=== PATIENT | female | born 1965 | race Caucasian/White ===

== ENCOUNTER 2021-12-27 18:26 | Outpatient (CLI) | payer OTHER ==
--- NOTE | 2021-12-28 13:06 | XRAY Report ---
PROCEDURE: Foot 3 View LT INDICATIONS: LEFT FOOT PAIN TECHNIQUE: 3 views of the foot were acquired. COMPARISON: None FINDINGS: Bones: No fractures or dislocations. No suspicious bony lesions. Scattered areas of degenerative m inimal IP narrowing, most notable at the first MTP joint.Small calcaneal spur. Soft tissues: No tibiotalar joint effusion. Achilles tendon appears normal. IMPRESSION: There are areas of IP arthritic change. Reviewed by: Gretchen Euceda MD on 12/28/2021 1:04 PM [facility] Approved by: Gretchen Euceda MD on 12/28/2021 1:04 PM [facility] Station ID: [id number]
--- NOTE | 2021-12-28 13:07 | XRAY Report ---
PROCEDURE: Tib/Fib LT INDICATIONS: LOWER LEG PAIN TECHNIQUE: 2 views of the tibia and fibula were acquired. COMPARISON: X-ray foot 12/27/2021 FINDINGS: Bones: No fractures or dislocations. No suspicious bony lesions. Soft tissues: No suspicious soft tissue calcifications or masses. IMPRESSION: No visualized acute fracture or dislocation. However, occult injury cannot be excluded. Recommend marietta rt interval imaging follow-up in 7-10 days as clinically indicated for additional evaluation. Reviewed by: Gretchen Euceda MD on 12/28/2021 1:05 PM PST Approved by: Gretchen Euceda MD on 12/28/2021 1:05 PM PST Station ID: [id number]
== END 2021-12-27 18:27 | disposition home or self-care (01) ==
LOC: DI.S 18:26
PROVIDERS: ATTEND Physician Assistant
DX: M19.072 Primary osteoarthritis, left ankle and foot (principal)

== ENCOUNTER 2022-06-12 12:47 | Emergency (ER) | payer OTHER ==
[2022-06-12] MEDS ORDERED: ASPIRIN CHEW 81 MG TABLET PO STA (13:03)
[2022-06-12] MEDS ORDERED: NITROGLYCERIN SL 0.4 MG TABLET SL STA (13:03)
--- NOTE | 2022-06-12 13:04 | ED Physician Documentation ---
PD HPI CHEST PAIN - Stated complaint Stated Complaint: CHEST/BACK PX - Chief complaint Chief Complaint: Cardiac - History obtained from History obtained from: Patient - Additional information Additional information: She has had on and off upper chest pain since February. She been having daily episodes and generally triggered by exertion and lasting on average about 15 minutes. She has seen her primary care physician and so far has had multiple EKGs and pulmonary function testing done without specific diagnosis, she has a stress test scheduled for 2 days from today with [facility]. Today she has had pain since 830 this morning. It is not relenting as it usually does and is rest pain which is different than the previous episode she has been having but the quality and location are the same. She is a little short of breath with it. Denies diaphoresis or nausea. 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 : None HEENT: None Psych: Depression, Anxiety Musculoskeletal: Osteoarthritis, Other Derm: Eczema - Past Surgical History Past Surgical History: Yes General: Cholecystectomy, Gastric surgery /SPECIAL EDUCATION ADMINISTRATOR: section, Hysterectomy - Present Medications Home Medications: Ambulatory Orders Medication Instructions Recorded Confirmed Adalimumab [Humira Pen] 40 mg SQ ONCE 02/05/21 06/12/22 Ibuprofen [Motrin] 600 mg PO Q6H PRN 02/05/21 06/12/22 Omeprazole Magnesium 20 mg PO DAILY 02/05/21 06/12/22 PARoxetine HCL [Paxil] 60 mg PO DAILY 02/05/21 06/12/22 busPIRone [Buspar] 5 mg PO DAILY 02/05/21 06/12/22 Nitroglycerin [Nitrostat] 0.4 mg SL Q5MIN PRN #1 tab 06/12/22 - Allergies Allergies/Adverse Reactions: Allergies Allergy/AdvReac Type Severity Reaction Status Date / Time amoxicillin Allergy Edema Verified 06/12/22 12:50 erythromycin base Allergy Edema Verified 06/12/22 12:50 [From Erythrocin] - Social History Does the pt smoke?: No Smoking Status: Former smoker Does the pt drink ETOH?: Yes Does the pt have substance abuse?: Yes - Immunizations Immunizations are current?: Yes PD ED PE NORMAL - Vitals Vital signs reviewed: Yes - General General: Alert and oriented X 3, No acute distress - HEENT HEENT: PERRL, EOMI - Neck Neck: Supple, no meningeal sign, No bony TTP - Cardiac Cardiac: RRR, No murmur - Respiratory Respiratory: No respiratory distress, Clear bilaterally - Abdomen Abdomen: Normal bowel sounds, Soft, Non tender - Back Back: No CVA TTP, No spinal TTP - Derm Derm: Normal color, Warm and dry - Extremities Extremities: No edema, No calf tenderness / cord - Neuro Neuro: Alert and oriented X 3, Normal speech Eye Opening: Spontaneous Motor: Obeys Commands Results - Vitals Vitals: Vital Signs - 24 hr 06/12/22 06/12/22 06/12/22 12:50 13:23 13:28 Temperature 36.5 C Heart Rate 80 78 76 Respiratory 16 20 16 Rate Blood Pressure 145/84 H 131/80 H 139/76 H O2 Saturation 99 99 98 06/12/22 13:42 Temperature Heart Rate 71 Respiratory 12 Rate Blood Pressure 109/85 H O2 Saturation 100 Oxygen O2 Source Room air - EKG (time done) 1258 EKG releavant findings:: EKG personally interpreted by author of this note. Relevant findings are: Rate: Rate (enter#) (80) Rhythm: NSR [place]: Normal Intervals: Normal [place] QRS: Normal Ischemia: Normal ST segments, Other (Inferior Q waves, no change from February 05, 2021.). No: ST elevation c/w ischemia, ST depression Compare to prior EKG: Unchanged from prior EKG Computer interpretation: Agree with computer - Labs Labs: Laboratory Tests 06/12/22 06/12/22 06/12/22 13:18 13:18 13:18 WBC 5.6 RBC 4.69 Hgb 13.6 Hct 40.5 MCV 86.4 MCH 29.0 MCHC 33.6 RDW 14.1 Plt Count 497 H MPV 9.5 Neut # (Auto) 2.0 Lymph # (Auto) 3.0 [place] # (Auto) 0.4 Eos # (Auto) 0.2 Baso # (Auto) 0.1 Absolute Nucleated RBC 0.00 Nucleated RBC % 0.0 Sodium 140 Potassium 4.3 Chloride 103 Carbon Dioxide 26 Anion Gap 11.0 BUN 11 Creatinine 0.6 Estimated GFR (MDRD) 103 Glucose 95 Calcium 9.2 Total Bilirubin 0.4 AST 27 ALT 26 Alkaline Phosphatase 62 Troponin I High Sens 2.4 Total Protein 7.8 Albumin 3.9 Globulin 3.9 Albumin/Globulin Ratio 1.0 Lipase 27 - Rads (name of study) 1v chest Relevant Findings:: Final report received (NAD), EMP independent interpretation of test PD Medical Decision Making - ED course ED course: This is a 57-year-old woman who has been having chest pain concerning for angina for the last couple of months and today has more ongoing rest pain. Her EKG is not changed. She was administered aspirin and nitroglycerin with resolution of her pain. Subsequently her troponin, CBC, and CMP were normal. Chest x-ray unremarkable. Now that she is pain-free I think she can be safely discharged with a prescription for nitroglycerin and daily aspirin since she has appropriate follow-up with a stress test scheduled for 48 hours from now. Departure - Departure Disposition: 01 Home, Self Care Clinical Impression: Chest pain Qualifiers: Chest pain type: unspecified Qualified Code(s): R07.9 - Chest pain, unspecified Condition: Good Record reviewed to determine appropriate education?: Yes Instructions: Angina Dc Prescriptions: Nitroglycerin [Nitrostat] 0.4 mg SL Q5MIN PRN #1 tab PRN Reason: Chest Pain Comments: Keep the appointment for the stress test you have scheduled in 48 hours. If you develop pain, take a nitroglycerin and then rest. If pain is not gone within a few minutes, take another nitroglycerin and call 911. You should take a baby aspirin a day.
--- NOTE | 2022-06-12 13:17 | XRAY Report ---
PROCEDURE: Chest 1 View X-Ray INDICATIONS: Chest pain TECHNIQUE: One view of the chest was acquired. COMPARISON: 02/05/2021. FINDINGS: Surgical changes and devices: None. Lungs and pleura: No pleural effusions or pneumothorax. Lungs are clear. Mediastinum: Mediastinal contours appear normal. Heart size is normal. Bones and chest wall: No suspicious bony lesions. Overlying soft tissues appear unremarkable. IMPRESSION: No acute cardiopulmonary process. Reviewed by: Michael Torrez MD on 06/12/2022 1:16 PM PDT Approved by: Michael Torrez MD on 06/12/2022 1:16 PM PDT Station ID: [id number]
[2022-06-12 13:25] LABS: BASOPHILS # (AUTO) 0.1 10^3/uL (0.0-0.1); BASOPHILS % (AUTO) 0.9 %; EOSINOPHILS # (AUTO) 0.2 10^3/uL (0.0-0.7); EOSINOPHILS % (AUTO) 2.9 %; HCT - HEMATOCRIT 40.5 % (37.0-47.0); HGB - HEMOGLOBIN 13.6 g/dL (12.0-16.0); LYMPHOCYTES % (AUTO) 52.9 %; MEAN CORPUSCULAR HGB CONC 33.6 g/dL (32.0-36.0); MEAN CORPUSCULAR VOLUME 86.4 fL (81.0-99.0); MEAN PLATELET VOLUME 9.5 fL (7.9-10.8); MONOCYTES # (AUTO) 0.4 10^3/uL (0.0-1.0); MONOCYTES % (AUTO) 7.5 %; NEUTROPHILS % (AUTO) 35.6 %; PLT - PLATELET COUNT 497 10^3/uL (130-450); RED BLOOD COUNT 4.69 10^6/uL (4.20-5.40); RED CELL DISTRIBUTION WIDTH 14.1 % (12.0-15.0); WHITE BLOOD COUNT 5.6 x10^3/uL (4.8-10.8)
[2022-06-12 13:45] LABS: ALBUMIN 3.9 g/dL (3.2-5.5); BILIRUBIN,TOTAL 0.4 mg/dL (0.2-1.0); CALCIUM 9.2 mg/dL (8.5-10.3); CREATININE 0.6 mg/dL (0.4-1.0); POTASSIUM 4.3 mmol/L (3.5-5.0); TOTAL PROTEIN 7.8 g/dL (6.7-8.2)
[2022-06-12 14:20] VITALS: BP 110/82
== END 2022-06-12 14:20 | disposition home or self-care (01) ==
LOC: ED 12:47
DX: R07.9 Chest pain, unspecified (principal); E03.9 Hypothyroidism, unspecified; Z87.891 Personal history of nicotine dependence; Z79.899 Other long term (current) drug therapy
CPT/HCPCS: 36415; 71045; 80053; 83690; 84484; 85025; 93005; 99284; A9270

== ENCOUNTER 2022-07-23 13:32 | Emergency (ER) | payer OTHER ==
--- NOTE | 2022-07-23 13:50 | ED Physician Documentation ---
PD HPI CHEST PAIN - Stated complaint Stated Complaint: CHEST PX - Chief complaint Chief Complaint: Cardiac - History obtained from History obtained from: Patient - History of Present Illness Timing - onset: How many hours ago (few), Today Timing - onset during: Rest, Light activity Timing - duration: Hours (few) Timing - details: Gradual onset, Still present, Waxing and waning Quality: Pressure, Aching, Pain. No: Sharp Location: Substernal Radiation: Neck (right side), Back Improved by: No: Rest, Nitro (she has this periodically since February, and has had improvement with NTG x 1 or 2 in the past. Did not get improved with NTG x 3 today. Has been having cardi[facility] eval [facility] that was normal. Having Holter now. Was given Rx for NTG PRN.) Worsened by: No: Inspiration, Eating, Movement Recently seen: Clinic, Emergency Dept (few weeks ago with similar, with normal ECG and Troponin. 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 : None HEENT: None Psych: Depression, Anxiety Musculoskeletal: Osteoarthritis, Other Derm: Eczema - Past Surgical History Past Surgical History: Yes General: Cholecystectomy, Gastric surgery /CHOCOLATE FINISHER: section, Hysterectomy - Present Medications Home Medications: Ambulatory Orders Medication Instructions Recorded Confirmed Adalimumab [Humira Pen] 40 mg SQ ONCE 02/05/21 06/12/22 Ibuprofen [Motrin] 600 mg PO Q6H PRN 02/05/21 06/12/22 Omeprazole Magnesium 20 mg PO DAILY 02/05/21 06/12/22 PARoxetine HCL [Paxil] 60 mg PO DAILY 02/05/21 06/12/22 busPIRone [Buspar] 5 mg PO DAILY 01/01/22 05/08/23 Nitroglycerin [Nitrostat] 0.4 mg SL Q5MIN PRN #1 tab 06/12/22 Isosorbide Mononitrate ER [Imdur] 30 mg PO DAILY #10 tablet 07/23/22 - Allergies Allergies/Adverse Reactions: Allergies Allergy/AdvReac Type Severity Reaction Status Date / Time amoxicillin Allergy Edema Verified 07/23/22 13:46 erythromycin base Allergy Edema Verified 07/23/22 13:46 [From Erythrocin] - Social History Does the pt smoke?: No Smoking Status: Former smoker Does the pt drink ETOH?: Yes Does the pt have substance abuse?: Yes - Immunizations Immunizations are current?: Yes PD ED PE NORMAL - Vitals Vital signs reviewed: Yes - General General: Alert and oriented X 3, No acute distress, Well developed/nourished - Neck Neck: Supple, no meningeal sign, No adenopathy - Cardiac Cardiac: RRR, No murmur - Respiratory Respiratory: Clear bilaterally, Other (no chestwall tenderness. ) - Abdomen Abdomen: Soft, Non tender - Derm Derm: Normal color, Warm and dry - Extremities Extremities: No edema, No calf tenderness / cord - Neuro Neuro: Alert and oriented X 3, No motor deficit, Normal speech Results - Vitals Vitals: Vital Signs - 24 hr 07/23/22 07/23/22 07/23/22 13:42 14:24 14:46 Temperature 36.4 C L Heart Rate 80 75 67 Respiratory 20 15 12 Rate Blood Pressure 151/81 H 137/89 H 144/85 H O2 Saturation 99 95 98 Oxygen O2 Source Room air - EKG (time done) 13:40 EKG releavant findings:: EKG personally interpreted by author of this note. Relevant findings are: Rate: Rate (enter#) (77) Rhythm: NSR [place]: Normal Intervals: Normal [place] QRS: Normal Ischemia: Normal ST segments. No: ST elevation c/w ischemia, ST depression Compare to prior EKG: Unchanged from prior EKG (06/12/22) Computer interpretation: Agree with computer - Labs Labs: Laboratory Tests 07/23/22 07/23/22 07/23/22 13:54 13:54 13:54 WBC 7.1 RBC 4.51 Hgb 13.2 Hct 38.8 MCV 86.0 MCH 29.3 MCHC 34.0 RDW 14.0 Plt Count 345 MPV 8.8 Neut # (Auto) 2.8 Lymph # (Auto) 3.4 [place] # (Auto) 0.6 Eos # (Auto) 0.3 Baso # (Auto) 0.1 Absolute Nucleated RBC 0.00 Nucleated RBC % 0.0 Sodium 139 Potassium 4.1 Chloride 105 Carbon Dioxide 26 Anion Gap 8.0 BUN 17 Creatinine 0.6 Estimated GFR (MDRD) 103 Glucose 91 Calcium 8.9 Total Bilirubin 0.5 AST 20 ALT 24 Alkaline Phosphatase 61 Troponin I High Sens < 2.3 L Total Protein 7.3 Albumin 3.7 Globulin 3.6 Albumin/Globulin Ratio 1.0 Lipase 26 - Rads (name of study) chest xray Relevant Findings:: Prelim report reviewed, EMP independent interpretation of test (normal. ), See rad report PD Medical Decision Making - ED course Complexity details: reviewed old records (prior ECG for comparison), reviewed results, considered differential, d/w patient ED course: She has been having episodic chest pain with slight to moderate exertion at times but also at rest episodically since February. She has had normal EKGs and evaluation in the ER a couple of times with negative troponin and lab testing. She has been evaluated by cardiology at [facility] and had a stress echo test done end of June that was reportedly normal. She had then a normal echo and is currently having a Holter monitor. She was prescribed nitroglycerin to take if needed for chest pain episodes. She has use that occasionally over the past few weeks and will help at times. Otherwise just rest. Today's episode did not improve with nitroglycerin 3 doses over 15 or 20 minutes. Here for evaluation. Its not clear the cause of her symptoms at this time. We did try Mylanta with viscous lidocaine and that did not have any effect on her symptoms. We are evaluating for acute injury with her troponin and EKG. A chest x-ray was done and was clear without any signs of lung related cause of pain. I also ordered a chemistry panel to include lipase and LFTs. She has had her gallbladder out previously. We will look for any evidence of a particular abnormality with the above-noted testing. She was given hydromorphone for the pain. This did cause lead to improvement. With a normal blood testing and no signs of acute injury, but also no alternative diagnosis, at this point I would consider placing the patient on a long-acting nitrate such as Imdur and still have the sublingual nitroglycerin if needed and to [facility] for any further testing. Departure - Departure Disposition: 01 Home, Self Care Clinical Impression: Chest pain Condition: Stable Record reviewed to determine appropriate education?: Yes Follow-Up: Sukumar Wisdom MD [Primary Care Provider] - Prescriptions: Isosorbide Mononitrate ER [Imdur] 30 mg PO DAILY #10 tablet Comments: Your EKG and blood test called troponin are normal here. No signs of heart muscle injury. That does not exclude diminished blood flow to the heart temporarily (angina). Your chest x-ray is clear as well. Blood tests looking at basic blood count and liver and pancreas inflammation etc. are normal as well. Your chest discomfort has characteristics that sound potentially heart related. As such I would consider adding a long-acting nitrate (isosorbide) daily. Still use the short acting nitroglycerin if needed for pain episodes. Follow-up with your primary care and potentially insecticide mixer to see if any more evaluation needed in that regard. Other considerations would be musculoskeletal pain. You can use Tylenol every 4-6 hours if needed for pain. Light activity is okay. Avoid exertional for now. I sent your prescription to the [facility] in [place]. Return as needed. Discharge Date/Time: 07/23/22 15:05
[2022-07-23 13:59] LABS: BASOPHILS # (AUTO) 0.1 10^3/uL (0.0-0.1); BASOPHILS % (AUTO) 0.8 %; EOSINOPHILS # (AUTO) 0.3 10^3/uL (0.0-0.7); EOSINOPHILS % (AUTO) 4.6 %; HCT - HEMATOCRIT 38.8 % (37.0-47.0); HGB - HEMOGLOBIN 13.2 g/dL (12.0-16.0); LYMPHOCYTES # (AUTO) 3.4 10^3/uL (1.5-3.5); LYMPHOCYTES % (AUTO) 47.2 %; MEAN CORPUSCULAR HEMOGLOBIN 29.3 pg (27.0-31.0); MEAN PLATELET VOLUME 8.8 fL (7.9-10.8); MONOCYTES # (AUTO) 0.6 10^3/uL (0.0-1.0); MONOCYTES % (AUTO) 8.2 %; NEUTROPHILS # (AUTO) 2.8 10^3/uL (1.5-6.6); NEUTROPHILS % (AUTO) 38.9 %; PLT - PLATELET COUNT 345 10^3/uL (130-450); RED BLOOD COUNT 4.51 10^6/uL (4.20-5.40); WHITE BLOOD COUNT 7.1 x10^3/uL (4.8-10.8)
[2022-07-23 14:12] LABS: ALBUMIN 3.7 g/dL (3.2-5.5); BILIRUBIN,TOTAL 0.5 mg/dL (0.2-1.0); CALCIUM 8.9 mg/dL (8.5-10.3); CREATININE 0.6 mg/dL (0.4-1.0); POTASSIUM 4.1 mmol/L (3.5-5.0); TOTAL PROTEIN 7.3 g/dL (6.7-8.2)
[2022-07-23] MEDS ORDERED: MAG HYDROX/AL HYDROX/SIMETH 30 ML UDC PO STA (14:18)
[2022-07-23] MEDS ORDERED: LIDOCAINE VISCOUS 2% 15 ML ORAL SYRINGE MM STA (14:18)
[2022-07-23] MEDS ORDERED: HYDROmorphone 1 MG/ML CARPUJECT IVP STA (14:38)
[2022-07-23 14:50] VITALS: BP 144/85
--- NOTE | 2022-07-23 15:46 | XRAY Report ---
PROCEDURE: Chest 1 View X-Ray INDICATIONS: Chest pain TECHNIQUE: One view of the chest was acquired. COMPARISON: None. FINDINGS: Surgical changes and devices: External electronic device projects over the sternum Lungs and pleura: No pleural effusions or pneumothorax. Lungs are clear. Mediastinum: Mediastinal contours appear normal. Heart size is normal. Bones and chest wall: No suspicious bony lesions. Overlying soft tissues appear unremarkable. IMPRESSION: No acute cardiopulmonary process. Reviewed by: Ruben Titus MD on 07/23/2022 2:44 PM [facility] Approved by: Ruben Titus MD on 07/23/2022 2:44 PM [facility] Station ID: [id number]
== END 2022-07-23 15:05 | disposition home or self-care (01) ==
LOC: ED 13:32
DX: R07.9 Chest pain, unspecified (principal); Z87.891 Personal history of nicotine dependence
CPT/HCPCS: 36415; 71045; 80053; 83690; 84484; 85025; 93005; 96374; 99284; A9270; J1170

== ENCOUNTER 2023-08-27 13:25 | Outpatient (CLI) | payer OTHER ==
[2023-08-27 19:57] LABS: BASOPHILS # (AUTO) 0.1 10^3/uL (0.0-0.1); BASOPHILS % (AUTO) 0.7 %; EOSINOPHILS % (AUTO) 0.1 %; HCT - HEMATOCRIT 42.6 % (37.0-47.0); HGB - HEMOGLOBIN 13.8 g/dL (12.0-16.0); LYMPHOCYTES # (AUTO) 1.8 10^3/uL (1.5-3.5); LYMPHOCYTES % (AUTO) 25.8 %; MEAN CORPUSCULAR HEMOGLOBIN 27.9 pg (27.0-31.0); MEAN CORPUSCULAR HGB CONC 32.4 g/dL (32.0-36.0); MEAN CORPUSCULAR VOLUME 86.1 fL (81.0-99.0); MEAN PLATELET VOLUME 8.7 fL (7.9-10.8); MONOCYTES # (AUTO) 0.2 10^3/uL (0.0-1.0); MONOCYTES % (AUTO) 3.1 %; PLT - PLATELET COUNT 540 10^3/uL (130-450); RED BLOOD COUNT 4.95 10^6/uL (4.20-5.40); RED CELL DISTRIBUTION WIDTH 16.9 % (12.0-15.0); WHITE BLOOD COUNT 7.1 x10^3/uL (4.8-10.8)
[2023-08-27 20:14] LABS: % IRON SATURATION 29 % (20-50); ALBUMIN 4.8 g/dL (3.2-5.5); ALBUMIN/GLOBULIN RATIO 1.3 (1.0-2.2); ALKALINE PHOSPHATASE 68 IU/L (42-121); ALT ALANINE AMINOTRANSFERASE 25 IU/L (10-60); AST ASPARTATE AMINOTRANSFERASE 20 IU/L (10-42); BILIRUBIN,TOTAL 0.5 mg/dL (0.2-1.0); BUN - BLOOD UREA NITROGEN 11 mg/dL (6-20); CALCIUM 9.9 mg/dL (8.5-10.3); CARBON DIOXIDE - CO2 27 mmol/L (21-32); CHLORIDE 102 mmol/L (101-111); CHOL/HDL RATIO 2.5 (<4.4); CHOLESTEROL 238 mg/dL; CREATININE 0.6 mg/dL (0.6-1.3); GFR - MDRD 103 (>89); GLUCOSE 106 mg/dL (74-104); HDL CHOLESTEROL 94 mg/dL; IRON 137 ug/dL (50-212); LDL CHOLESTEROL,CALCULATED 122 mg/dL; LDL/HDL RATIO 1.3 (<4.4); POTASSIUM 4.1 mmol/L (3.5-4.5); SODIUM 136 mmol/L (135-145); TOTAL IRON BINDING CAPACITY 470 ug/dL (250-450); TOTAL PROTEIN 8.5 g/dL (6.4-8.9); TRANSFERRIN 336 mg/dL (203-362); TRIGLYCERIDES 108 mg/dL; VLDL CHOLESTEROL 22 mg/dL
[2023-08-27 20:29] LABS: THYROID STIMULATING HORMONE 2.11 uIU/mL (0.34-5.60)
[2023-08-27 20:32] LABS: FERRITIN 6.9 ng/mL (11.0-306.8)
[2023-08-27 20:54] LABS: ESTIMATED AVERAGE GLUCOSE 120 mg/dL (70-100); HEMOGLOBIN A1c% 5.8 % (4.27-6.07)
== END 2023-08-27 13:26 | disposition home or self-care (01) ==
LOC: LAB.S 13:25
PROVIDERS: ATTEND Nurse Practitioner Gerontology
DX: R53.83 Other fatigue (principal)
CPT/HCPCS: 36415; 80053; 80061; 82306; 82607; 82728; 83036; 83540; 83721; 84443; 84466; 85025

== ENCOUNTER 2023-10-12 13:28 | Outpatient (CLI) | payer OTHER ==
--- NOTE | 2023-10-13 07:42 | XRAY Report ---
PROCEDURE: Hand 3+V BL INDICATIONS: BILATERAL HAND PAIN TECHNIQUE: 3 views of the hand(s) acquired. COMPARISON: None. FINDINGS: Bones: No fractures or dislocations. No suspicious bony lesions. Interphalangeal joint space narr owing with osteophytosis. Soft tissues: No suspicious soft tissue calcifications or masses. IMPRESSION: No acute bony abnormality. Moderate interphalangeal osteoarthritis. Reviewed by: Jaziel Moscoso MD on 10/13/2023 7:41 AM PDT Approved by: Jaziel Moscoso MD on 10/13/2023 7:41 AM PDT Station ID: [id number]
== END 2023-10-12 13:29 | disposition home or self-care (01) ==
LOC: DI.S 13:28
PROVIDERS: ATTEND Internal Medicine Rheumatology
DX: M19.041 Primary osteoarthritis, right hand (principal); M19.042 Primary osteoarthritis, left hand